=== PATIENT | male | born 1955 | race Caucasian/White ===

== ENCOUNTER 2018-11-18 13:56 | Emergency (ER) | payer OTHER ==
[~2018-11-18] VITALS: Ht 172.7 cm; Wt 106.8 kg
[2018-11-18 14:23] VITALS: BP 152/83
[2018-11-18] MEDS ORDERED: TETanus/Pertussis (Acell)/Diphther VAC/PF (Tdap-Adult) 0.5ml syringe IM ONE (16:05)
== END 2018-11-18 18:57 | disposition home or self-care (01) ==
LOC: ER 13:57
DX: S90.411A Abrasion, right great toe, initial encounter (principal); S40.212A Abrasion of left shoulder, initial encounter; R60.9 Edema, unspecified; V19.88XA Pedal cyclist (driver) (passenger) injured in other specified transport accidents, initial encounter; Y93.55 Activity, bike riding; Y92.413 State road as the place of occurrence of the external cause; Y99.9 Unspecified external cause status
CPT/HCPCS: 70450; 90471; 90715; 99284